=== PATIENT | male | born 1995 | race Hispanic/Latino ===

== ENCOUNTER 2017-02-05 07:14 | Emergency (ER) | payer SELFPAY ==
[~2017-02-05] VITALS: Ht 180.3 cm; Wt 90.7 kg
[~2017-02-05 07:14] MED LIST: LRT10T; ONDA4TAB8 PO
[2017-02-05 07:38] LABS: BASOPHILS % (AUTO) 0 % (0-10); EOSINOPHILS % (AUTO) 0 % (0-10); LYMPHOCYTES # (AUTO) 0.9 X 10^3 (1.0-4.0); LYMPHOCYTES % (AUTO) 8 % (12-44); MEAN CORPUSCULAR HEMOGLOBIN 30 PG (25-34); MEAN CORPUSCULAR HGB CONC 34 G/DL (32-36); MEAN CORPUSCULAR VOLUME 87 FL (80-99); MEAN PLATELET VOLUME 10.1 FL (7.4-10.4); MONOCYTES # (AUTO) 1.5 X 10^3 (0.0-1.0); MONOCYTES % (AUTO) 14 % (0-12); NEUTROPHILS # (AUTO) 8.4 X 10^3 (1.8-7.8); NEUTROPHILS % (AUTO) 78 % (42-75); PLATELET COUNT 248 10^3/uL (130-400); RED BLOOD COUNT 5.15 10^6/uL (4.35-5.85); RED CELL DISTRIBUTION WIDTH 13.8 % (10.0-14.5); WHITE BLOOD COUNT 10.7 10^3/uL (4.3-11.0)
[2017-02-05] MEDS ORDERED: IBUP200C92 PO (07:40)
[2017-02-05 07:56] LABS: ALANINE AMINOTRANSFERASE 36 U/L (0-55); ALBUMIN 4.3 G/DL (3.2-4.5); ANION GAP 11 MMOL/L (5-14); ASPARTATE AMINO TRANSFERASE 32 U/L (5-34); BILIRUBIN,TOTAL 0.6 MG/DL (0.1-1.0); BLOOD UREA NITROGEN 16 MG/DL (7-18); BUN/CREATININE RATIO 17; CALCIUM 9.4 MG/DL (8.5-10.1); CARBON DIOXIDE 23 MMOL/L (21-32); CHLORIDE 102 MMOL/L (98-107); CREATININE SERUM 0.95 MG/DL (0.60-1.30); GFR ESTIMATED > 60; GLUCOSE 105 MG/DL (70-105); POTASSIUM 3.7 MMOL/L (3.6-5.0); SODIUM 136 MMOL/L (135-145); TOTAL PROTEIN 7.4 G/DL (6.4-8.2)
[2017-02-05 08:05] LABS: BAND NEUTROPHILS 1 %
[2017-02-05 08:06] LABS: NEUTROPHILS % (MANUAL) 80 %
[2017-02-05 08:10] LABS: LYMPHOCYTES % (MANUAL) 6 %
--- NOTE | 2017-02-05 08:25 | ED General ---
General Chief Complaint: Oral/Throat Problems Stated Complaint: SORE THROAT BODYACHES CHILLS Nursing Triage Note: Ambulatory to ED 10 with reports of body aches, sore throat, and chills since last night. Patient denies fever at home. Nursing Sepsis Screen: No Definite Risk Source of Information: Patient Exam Limitations: No Limitations History of Present Illness Time Seen by Provider: 08:22 Initial Comments The patient is a 21-year-old male who presents with the chief complaint of sore throat and chills and body ache. This was noted last week right after he got off work. He describes chills and rigors. He has not taken his temperature. He reports it is difficult to swallow because of the sore throat. He states that his sister with whom he lives had a respiratory illness last week. He has not been exposed to unusual heat at work. He is also not exposed to ticks. Timing/Duration: 12-24 Hours Associated Systoms: Fever/Chills, Malaise, Other (myalgia) Allergies and Home Medications Allergies Coded Allergies: No Known Drug Allergies (Unverified , 02/05/17) Home Medications Ibuprofen 200 Mg Capsule, 200-400 MG PO BID PRN for PAIN-MILD TO MODERATE, ( Reported) Constitutional: see HPI EENTM: throat pain Respiratory: no symptoms reported Cardiovascular: no symptoms reported Gastrointestinal: no symptoms reported Genitourinary: no symptoms reported Musculoskeletal: muscle pain, muscle stiffness Skin: no symptoms reported Psychiatric/Neurological: No Symptoms Reported Past [id number] Hx Patient Social History Alcohol Use: Occasionally Uses Recreational Drug Use: Yes Drug of Choice: Marijuana Smoking Status: Never a Smoker 2nd Hand Smoke Exposure: No Recent Foreign Travel: No Contact w/Someone Who Travel: No Recent Infectious Disease Expo: No Recent Hopitalizations: No Immunizations Up To Date Tetanus Booster (TDap): Less than 5yrs Seasonal Allergies Seasonal Allergies: No Physical Exam Vital Signs Vital Sign - Last 12Hours 02/05/17 07:28 Temp 99.1 Pulse 88 Resp 16 B/P (MAP) 134/90 Pulse Ox 97 O2 Delivery Room Air Capillary Refill : Less Than 3 Seconds General Appearance: Mild Distress Eyes: Bilateral Eye Normal Inspection HEENT: Tonsillar Exudate, Tonsillar Enlargement Neck: Normal Inspection Respiratory: Chest Non Tender, Lungs Clear, Normal Breath Sounds, No Accessory Muscle Use, No Respiratory Distress Gastrointestinal: Normal Bowel Sounds Back: Normal Inspection, No CVA Tenderness, No Vertebral Tenderness Extremity: Normal Capillary Refill, Normal Inspection, Normal Range of Motion, Non Tender, No Calf Tenderness, No Pedal Edema Skin: Normal Color, Warm/Dry Lymphatic: No Adenopathy Progress/Results/Core Measures Results/Orders Lab Results Laboratory Tests Test 02/05/17 07:30 02/05/17 08:36 Range/Units White Blood Count 10.7 4.3-11.0 10^3/uL Red Blood Count 5.15 4.35-5.85 10^6/uL Hemoglobin 15.4 13.3-17.7 G/DL Hematocrit 45 40-54 % Mean Corpuscular Volume 87 80-99 FL Mean Corpuscular Hemoglobin 30 25-34 PG Mean Corpuscular Hemoglobin Concent 34 32-36 G/DL Red Cell Distribution Width 13.8 10.0-14.5 % Platelet Count 248 130-400 10^3/uL Mean Platelet Volume 10.1 7.4-10.4 FL Neutrophils (%) (Auto) 78 H 42-75 % Lymphocytes (%) (Auto) 8 L 12-44 % Monocytes (%) (Auto) 14 H 0-12 % Eosinophils (%) (Auto) 0 0-10 % Basophils (%) (Auto) 0 0-10 % Neutrophils # (Auto) 8.4 H 1.8-7.8 X 10^3 Lymphocytes # (Auto) 0.9 L 1.0-4.0 X 10^3 Monocytes # (Auto) 1.5 H 0.0-1.0 X 10^3 Eosinophils # (Auto) 0.0 0.0-0.3 10^3/uL Basophils # (Auto) 0.0 0.0-0.1 10^3/uL Neutrophils % (Manual) 80 % Lymphocytes % (Manual) 6 % Monocytes % (Manual) 13 % Band Neutrophils 1 % Toxic Granulation 1+ Sodium Level 136 135-145 MMOL/L Potassium Level 3.7 3.6-5.0 MMOL/L Chloride Level 102 98-107 MMOL/L Carbon Dioxide Level 23 21-32 MMOL/L Anion Gap 11 5-14 MMOL/L Blood Urea Nitrogen 16 7-18 MG/DL Creatinine 0.95 0.60-1.30 MG/DL Estimat Glomerular Filtration Rate > 60 BUN/Creatinine Ratio 17 Glucose Level 105 70-105 MG/DL Calcium Level 9.4 8.5-10.1 MG/DL Total Bilirubin 0.6 0.1-1.0 MG/DL Aspartate Amino Transf (AST/SGOT) 32 5-34 U/L Alanine Aminotransferase (ALT/SGPT) 36 0-55 U/L Alkaline Phosphatase 35 L 40-136 U/L Total Protein 7.4 6.4-8.2 G/DL Albumin 4.3 3.2-4.5 G/DL Group A Streptococcus Screen NEGATIVE NEGATIVE My Orders Orders - CHEVY LINDO MD Cbc With Automated Diff (02/05/17 07:24) Comprehensive Metabolic Panel (02/05/17 07:24) Manual Differential (02/05/17 07:30) Rapid Strep A Screen (02/05/17 08:21) Vital Signs/I&O Vital Sign - Last 12Hours 02/05/17 07:28 Temp 99.1 Pulse 88 Resp 16 B/P (MAP) 134/90 Pulse Ox 97 O2 Delivery Room Air Blood Pressure Mean: 105 Departure Communication Progress Notes Lab and rapid strep are negative Impression Impression: Primary Impression: pharyngitis Additional Impression: viral URI Disposition: 01 HOME, SELF-CARE Condition: Stable/Unchanged Departure-Patient Inst. Referrals: NO,LOCAL PHYSICIAN (PCP/Family) Primary Care Physician Patient Instructions: Viral Pharyngitis (DC) Add. Discharge Instructions: All discharge instructions reviewed with patient and/or family. Voiced understanding. Use ibuprofen 600 mg 4 times daily or Tylenol 1000 mg 4 times daily for fever aches and pains. Rest Lots of liquids Cepastat or Chloraseptic throat spray or halls throat lozenges CHEVY LINDO MD February 05, 2017 08:25
[2017-02-05 09:29] VITALS: BP 130/88
== END 2017-02-05 09:29 | disposition home or self-care (01) ==
LOC: EDUNIT# 07:14 → ER 07:21
DX: J06.9 Acute upper respiratory infection, unspecified (principal)
CPT/HCPCS: 36415; 80053; 85007; 85027; 87430; 99282

== ENCOUNTER → 2021-01-27 | Outpatient (CLI) | payer OTHER ==
[~2021-01-27] MED LIST changes: +IBUP200C92 PO
== END | disposition home or self-care (01) ==
LOC: PREOP 11:23
PROVIDERS: ATTEND Otolaryngology Otolaryngology/Facial Plastic Surgery
DX: Z01.818 Encounter for other preprocedural examination (principal)